=== PATIENT | female | born 1930 | race American Indian/Alaskan Native ===

== ENCOUNTER 2018-05-11 09:31 | Outpatient (CLI) | payer MEDICARE ==
--- NOTE | 2018-05-11 11:27 | XRay Report ---
XRAY RIGHT SHOULDER 2 VIEWS: 05/11/18 09:31:00 CLINICAL: Right shoulder pain. FINDINGS: Status post reverse total shoulder arthroplasty. Normal appearance of the prosthesis. Severe osteopenia. No acute fracture or dislocation. The stem of the humeral prosthesis traverses an oblique fracture of uncertain age. There is evidence of callus and remodeling of the bone. Moderate acromioclavicular joint arthritis. No suspicious bone lesion. Normal soft tissues. IMPRESSION: Severe osteopenia and an oblique proximal humeral fracture of uncertain age. It is difficult to assess the progress of healing without knowing the age of the fracture and without having prior imaging for comparison. Status post reverse total shoulder arthroplasty with normal appearance of the prosthesis.
== END 2018-05-11 09:32 | disposition home or self-care (01) ==
LOC: SPVIMAG 09:31
PROVIDERS: ATTEND Internal Medicine
DX: M85.811 Other specified disorders of bone density and structure, right shoulder (principal); M19.011 Primary osteoarthritis, right shoulder